=== PATIENT | male | born 1945 | race Caucasian/White ===

== ENCOUNTER 2018-01-07 04:09 | Observation (INO) | payer MEDICARE, OTHER ==
[2018-01-07] MEDS ORDERED: SODIUM CHLORIDE 0.9% 1,000 ML IV ONE (04:17)
[2018-01-07] MEDS ORDERED: MORPHINE 10 MG/ML VIAL IVP STA (04:17)
[2018-01-07] MEDS ORDERED: ONDANSETRON 4 MG/2 ML VIAL IVP STA (04:17)
--- NOTE | 2018-01-07 04:22 | ED Physician Documentation ---
PD HPI ABD PAIN - Stated complaint Stated Complaint: ABDOMINAL PAIN - History obtained from History obtained from: Patient - History of Present Illness Timing - onset: Yesterday Timing - details: Gradual onset, Intermittant Quality: Cramping, Aching, Sharp Location: RLQ, LLQ Associated symptoms: Nausea. No: Fever, Vomiting, Diarrhea, Constipation Similar symptoms before: Work up / diagnostics, Treatment Recently seen: Not recently seen - Additional information Additional information: Patient is a 72 year old male with a history of prior abdominal surgery and sbo who is presenting to the emergency department for lower abdominal pain. Patient states that it started yesterday day evening. patient states that the pain is always there but he will have episodes when it gets severe. Patient reports a normal bowel movement and denies any urinary complaints. Review of Systems Constitutional: denies: Fever, Chills Eyes: reports: Reviewed and negative Ears: reports: Reviewed and negative Nose: reports: Reviewed and negative Throat: reports: Reviewed and negative Cardiac: denies: Chest pain / pressure Respiratory: denies: Dyspnea, Cough GI: reports: Abdominal Pain. denies: Abdominal Swelling, Nausea, Vomiting, Constipation, Diarrhea : denies: Dysuria, Frequency, Hesitancy, Hematuria Musculoskeletal: denies: Back pain Neurologic: denies: Generalized weakness, Focal weakness Immunocompromised: denies: Immunocompromised PD PAST MEDICAL HISTORY - Past Medical History Cardiovascular: Hypertension, Atrial flutter Respiratory: None Endocrine/Autoimmune: None GI: None : None HEENT: None Psych: None Musculoskeletal: Gout Derm: None - Past Surgical History Past Surgical History: Yes - Present Medications Home Medications: Ambulatory Orders Medication Instructions Recorded Confirmed Allopurinol 100 mg PO DAILY 01/18/16 01/18/16 Benazepril HCl 5 mg PO DAILY 01/18/16 01/18/16 Simvastatin 20 mg PO DAILY 01/18/16 01/18/16 hydroCHLOROthiazide [Hydrodiuril] 25 mg PO ONCE 01/18/16 01/18/16 - Allergies Allergies/Adverse Reactions: Allergies Allergy/AdvReac Type Severity Reaction Status Date / Time No Known Drug Allergies Allergy Verified 01/07/18 04:43 - Social History Does the pt smoke?: No Smoking Status: Never smoker Does the pt have substance abuse?: No - Immunizations Immunizations are current?: Yes - POLST Patient has POLST: No PD ED PE NORMAL - Vitals Vital signs reviewed: Yes - General General: Alert and oriented X 3, No acute distress - HEENT HEENT: Atraumatic, PERRL - Neck Neck: Supple, no meningeal sign - Cardiac Cardiac: RRR - Respiratory Respiratory: No respiratory distress - Derm Derm: Normal color, Warm and dry - Extremities Extremities: No deformity - Neuro Neuro: Alert and oriented X 3, No motor deficit, Normal speech Eye Opening: Spontaneous Motor: Obeys Commands Verbal: Oriented GCS Score: 15 PD ED PE EXPANDED - Abdomen Abdomen: Tender to palpation, RLQ, Suprapubic, LLQ. No: Rebound, Guarding, Mass Results - Vitals Vitals: Vital Signs - 24 hr 01/07/18 01/07/18 04:13 06:24 Temperature 36.7 C Heart Rate 79 80 Respiratory 28 H 17 Rate Blood Pressure 133/78 H 126/79 O2 Saturation 100 98 Oxygen O2 Source Room air - Labs Labs: Laboratory Tests 01/07/18 01/07/18 01/07/18 04:10 04:30 04:30 WBC 12.5 H RBC 5.56 Hgb 16.7 Hct 49.0 MCV 88.0 MCH 30.0 MCHC 34.1 RDW 13.3 Plt Count 250 MPV 8.0 Neut # 10.8 H Lymph # 1.2 L [place] # 0.4 Eos # 0.0 Baso # 0.1 Absolute Nucleated RBC 0.00 Nucleated RBC % 0.0 Sodium 135 Potassium 3.3 L Chloride 96 L Carbon Dioxide 28 Anion Gap 11.0 BUN 21 H Creatinine 1.0 Estimated GFR (MDRD) 74 L Glucose 141 H Lactic Acid Calcium 9.6 Total Bilirubin 1.4 H AST 26 ALT 28 Alkaline Phosphatase 71 Total Protein 8.0 Albumin 4.7 Globulin 3.3 Albumin/Globulin Ratio 1.4 Lipase 44 Urine Color YELLOW Urine Clarity CLEAR Urine pH 6.5 Ur Specific [place] 1.015 Urine Protein NEGATIVE Urine Glucose (UA) NEGATIVE Urine Ketones NEGATIVE Urine Occult Blood NEGATIVE Urine Nitrite NEGATIVE Urine Bilirubin NEGATIVE Urine Urobilinogen 0.2 (NORMAL) Ur Leukocyte Esterase NEGATIVE Ur Microscopic Review NOT INDICATED Urine Culture Comments NOT INDICATED 01/07/18 04:30 WBC RBC Hgb Hct MCV MCH MCHC RDW Plt Count MPV Neut # Lymph # [place] # Eos # Baso # Absolute Nucleated RBC Nucleated RBC % Sodium Potassium Chloride Carbon Dioxide Anion Gap BUN Creatinine Estimated GFR (MDRD) Glucose Lactic Acid 2.1 Calcium Total Bilirubin AST ALT Alkaline Phosphatase Total Protein Albumin Globulin Albumin/Globulin Ratio Lipase Urine Color Urine Clarity Urine pH Ur Specific [place] Urine Protein Urine Glucose (UA) Urine Ketones Urine Occult Blood Urine Nitrite Urine Bilirubin Urine Urobilinogen Ur Leukocyte Esterase Ur Microscopic Review Urine Culture Comments - Rads (name of study) ct abdomen and pelvis Radiology: Final report received (sbo) PD MEDICAL DECISION MAKING - ED course Complexity details: reviewed old records, reviewed results, re-evaluated patient , considered differential, d/w patient, d/w family ED course: Patient was seen and examined at bedside. IV access was gained and labs were drawn. Patient was treated with zofran and fluids. Imaging was ordered. When patient returned from imaging the results were reviewed. patient was found to have an sbo. call or contact centre team leader surgery, Dr. Sommers was called and the case was discussed with him. Patient was admitted under his service for further evaluation and care. Departure - Departure Disposition: ED Place in Observation Clinical Impression: Small bowel obstruction Condition: Stable
[2018-01-07 04:37] LABS: BILIRUBIN,URINE NEGATIVE (NEGATIVE); GLUCOSE, URINE (UA) NEGATIVE (NEGATIVE); KETONES,URINE (UA) NEGATIVE (NEGATIVE); LEUKOCYTE ESTERASE, URINE NEGATIVE (NEGATIVE); NITRITE,URINE NEGATIVE (NEGATIVE); OCCULT BLOOD,URINE NEGATIVE (NEGATIVE); PH,URINE 6.5 PH (5.0-7.5); PROTEIN,URINE NEGATIVE (NEGATIVE); UROBILINOGEN,URINE 0.2 (NORMAL) E.U./dL (NORMAL)
[2018-01-07 04:45] LABS: BASOPHILS # (AUTO) 0.1 10^3/uL (0.0-0.1); BASOPHILS % (AUTO) 0.9 %; EOSINOPHILS % (AUTO) 0.3 %; HGB - HEMOGLOBIN 16.7 g/dL (14.0-18.0); LYMPHOCYTES # (AUTO) 1.2 10^3/uL (1.5-3.5); LYMPHOCYTES % (AUTO) 9.4 %; MEAN CORPUSCULAR HGB CONC 34.1 g/dL (32.0-36.0); MONOCYTES # (AUTO) 0.4 10^3/uL (0.0-1.0); NEUTROPHILS # (AUTO) 10.8 10^3/uL (1.5-6.6); NEUTROPHILS % (AUTO) 86.4 %; PLT - PLATELET COUNT 250 10^3/uL (130-450); RED BLOOD COUNT 5.56 10^6/uL (4.70-6.10); RED CELL DISTRIBUTION WIDTH 13.3 % (12.0-15.0); WHITE BLOOD COUNT 12.5 x10^3/uL (4.8-10.8)
[2018-01-07 04:47] LABS: CLARITY,URINE CLEAR (CLEAR)
[2018-01-07] MEDS ORDERED: IOPAMIDOL-300 100 ML VIAL ONE (04:48)
[2018-01-07 04:57] LABS: ALBUMIN 4.7 g/dL (3.2-5.5); ALBUMIN/GLOBULIN RATIO 1.4 (1.0-2.2); BILIRUBIN,TOTAL 1.4 mg/dL (0.2-1.0); CALCIUM 9.6 mg/dL (8.5-10.3)
[2018-01-07] MEDS ORDERED: IOPAMIDOL-300 100 ML VIAL IVP ONE (05:21)
--- NOTE | 2018-01-07 05:55 | CT Preliminary Report ---
Exam: CT ABDOMEN/PELVIS W/ IMPRESSION: 1. Similar pattern of small bowel obstruction again seen with a transition within the central/right l ower quadrant region of the abdomen. Maximal small bowel diameter measures 3.5 cm (image 75 series 3) . There is mild associated adjacent mesenteric edema. 2. Stable 1.7 cm right adrenal nodule. Stability from the prior study favors a benign etiology, such as an adenoma. 3. Severe sigmoid diverticulosis noted without evidence of diverticulitis. Appendix is normal. [facility] SITE ID: [id number]
--- NOTE | 2018-01-07 06:05 | CT Report ---
EXAM: CT ABDOMEN AND PELVIS EXAM DATE: 01/07/2018 05:23 AM. CLINICAL HISTORY: Lower abdominal pain, history of bowel obstruction. COMPARISONS: 01/18/2016. TECHNIQUE: Routine helical CT imaging was performed through the abdomen and pelvis. IV contrast: 100 mL Isovue 300. Enteric contrast: No. Reconstructions: Coronal and sagittal. In accordance with CT protocol optimization, one or more of the following dose reduction techniques w ere utilized for this exam: automated exposure control, adjustment of mA and/or KV based on patient s ize, or use of iterative reconstructive technique. FINDINGS: ABDOMEN: Liver: No significant abnormality. Stomach/Distal Esophagus: No significant abnormality. Gallbladder: No significant abnormality. Bile Ducts: No significant abnormality. Pancreas: No significant abnormality. Spleen: No significant abnormality. Kidneys: No suspicious solid appearing lesion. No hydronephrosis. Left renal peripelvic cysts are pre sent. Bilateral extrarenal pelves. Adrenals: Right adrenal nodule is again noted, measuring 1.8 cm (image 33 series 3). Bowel: As was noted on the prior examination, there are a cluster of dilated small bowel loops within the mid and lower abdomen, with a transition within the right lower quadrant region. Just proximal t o the transition, maximal small bowel diameter measures 3.5 cm (image 75 series 3). There is fecal ma tter within the small bowel near the transition site. Upstream bowel loops demonstrate mild distentio n, filled with fluid. There is a large duodenal diverticulum arising from the distal portion of the t hird portion of the duodenum measuring 4.8 cm (image 40 series 3). This is similar to the prior study . There is severe sigmoid diverticulosis. There is no definite evidence of diverticulitis noted at th is time. Appendix: Normal. Lymph Nodes: No pathologically enlarged nodes. Vasculature: Normal caliber aorta. Mild to moderate abdominal aortic atherosclerosis noted. Fluid: No significant free fluid. Abdominal Wall: No significant abnormality. Other: No significant abnormality. PELVIS: Prostate and Seminal Vesicles: At least mild prostate hypertrophy. Bladder: No significant abnormality. Lymph Nodes: No pathologically enlarged nodes. Fluid: No significant free fluid. Other: There is a small fat-containing right inguinal hernia. BONES: No suspicious bony lesions. LOWER CHEST: No significant consolidation or effusion. Linear subsegmental atelectasis and/or scarrin g within the lingula noted. IMPRESSION: 1. Similar pattern of small bowel obstruction again seen with a transition within the central/right l ower quadrant region of the abdomen. Maximal small bowel diameter measures 3.5 cm (image 75 series 3) . There is mild associated adjacent mesenteric edema. 2. Stable 1.7 cm right adrenal nodule. Stability from the prior study favors a benign etiology, such as an adenoma. 3. Severe sigmoid diverticulosis noted without evidence of diverticulitis. Appendix is normal. [facility] Referring Provider Line: [phone] SITE ID: [id number]
[2018-01-07] MEDS ORDERED: HYDROmorphone 0.5 MG/0.5 ML SYRINGE IVP PRN (06:19)
[2018-01-07] MEDS ORDERED: ONDANSETRON ODT 4 MG TABLET TL PRN (06:19)
[2018-01-07] MEDS ORDERED: SODIUM CHLORIDE FLUSH 0.9% 10 ML SYRINGE IVP PRN (06:19)
[2018-01-07] MEDS ORDERED: SODIUM CHLORIDE 0.9% 1,000 ML IV SCH (07:00)
[2018-01-07] MEDS ORDERED: HEPARIN 5,000 UNIT/ML VIAL SUBQ SCH (09:00)
[2018-01-07] MEDS ORDERED: POLYETHYLENE GLYCOL 3350 17 GM PACKET PO SCH (09:00)
[2018-01-07] MEDS ORDERED: HYDROmorphone 1 MG/ML SYRINGE IVP PRN (10:54)
[2018-01-07] MEDS: NS W/40 MEQ KCL 1,000 ML IV SCH ×2 (11:08→19:52)
[2018-01-07] MEDS: FAMOTIDINE 20 MG/50 ML 50 ML IV SCH ×2 (11:15→20:35)
[2018-01-07] MEDS: SODIUM CHLORIDE FLUSH 0.9% 10 ML SYRINGE IVP SCH ×2 (11:15→19:53)
[2018-01-08] MEDS: SODIUM CHLORIDE FLUSH 0.9% 10 ML SYRINGE IVP SCH ×2 (03:31→09:29)
[2018-01-08] MEDS: NS W/40 MEQ KCL 1,000 ML IV SCH (03:54)
[2018-01-08 06:18] LABS: BASOPHILS # (AUTO) 0.1 10^3/uL (0.0-0.1); EOSINOPHILS # (AUTO) 0.1 10^3/uL (0.0-0.7); EOSINOPHILS % (AUTO) 2.5 %; HGB - HEMOGLOBIN 14.3 g/dL (14.0-18.0); LYMPHOCYTES # (AUTO) 1.4 10^3/uL (1.5-3.5); LYMPHOCYTES % (AUTO) 24.3 %; MEAN CORPUSCULAR HEMOGLOBIN 30.3 pg (27.0-31.0); MEAN CORPUSCULAR HGB CONC 33.9 g/dL (32.0-36.0); MEAN CORPUSCULAR VOLUME 89.4 fL (80.0-94.0); MEAN PLATELET VOLUME 8.5 fL (7.4-11.4); MONOCYTES # (AUTO) 0.4 10^3/uL (0.0-1.0); MONOCYTES % (AUTO) 6.8 %; NEUTROPHILS # (AUTO) 3.8 10^3/uL (1.5-6.6); NEUTROPHILS % (AUTO) 65.4 %; PLT - PLATELET COUNT 188 10^3/uL (130-450); RED BLOOD COUNT 4.72 10^6/uL (4.70-6.10); WHITE BLOOD COUNT 5.8 x10^3/uL (4.8-10.8)
[2018-01-08 06:22] LABS: CALCIUM 8.4 mg/dL (8.5-10.3); CREATININE 0.8 mg/dL (0.6-1.2)
[2018-01-08] MEDS ORDERED: NS W/40 MEQ KCL 1,000 ML IV SCH (09:00)
[2018-01-08] MEDS: FAMOTIDINE 20 MG/50 ML 50 ML IV SCH (09:29)
[2018-01-08 11:35] VITALS: BP 124/70
--- NOTE | 2018-01-08 14:17 | PROVIDER PROGRESS NOTE ---
Subjective - General Admit Date: 01/07/18 - Review of Systems Gastrointestinal: positive: Flatus, Other (he had bowel movement that was loose and continues to have flatus) Objective - Patient Data Vital Signs: Vital Signs x48h Temp Pulse Resp BP Pulse Ox 01/08/18 11:34 36.4 C L 68 16 124/70 97 01/08/18 07:30 36.5 C 70 16 128/60 96 Weight: Weight 01/06/18 01/07/18 01/08/18 23:59 23:59 23:59 Weight (kg) 90.718 kg Intake & Output: Intake and Output Totals x24h 01/06/18 01/07/18 01/08/18 23:59 23:59 23:59 Intake Total 1100 2300.000 Balance 1100 2300.000 - Lab Results Lab Results: 01/08/18 05:40 01/08/18 05:40 Other Lab Results: Lab Results x24hrs 01/08/18 01/08/18 Range/Units 05:40 05:40 WBC 5.8 (4.8-10.8) x10^3/uL RBC 4.72 (4.70-6.10) 10^6/uL Hgb 14.3 (14.0-18.0) g/dL Hct 42.2 (42.0-52.0) % MCV 89.4 (80.0-94.0) fL MCH 30.3 (27.0-31.0) pg MCHC 33.9 (32.0-36.0) g/dL RDW 13.0 (12.0-15.0) % Plt Count 188 (130-450) 10^3/uL MPV 8.5 (7.4-11.4) fL Neut # 3.8 (1.5-6.6) 10^3/uL Lymph # 1.4 L (1.5-3.5) 10^3/uL [place] # 0.4 (0.0-1.0) 10^3/uL Eos # 0.1 (0.0-0.7) 10^3/uL Baso # 0.1 (0.0-0.1) 10^3/uL Absolute Nucleated RBC 0.01 x10^3/uL Nucleated RBC % 0.1 /100WBC Sodium 138 (135-145) mmol/L Potassium 3.9 (3.5-5.0) mmol/L Chloride 108 (101-111) mmol/L Carbon Dioxide 25 (21-32) mmol/L Anion Gap 5.0 L (6-13) BUN 16 (6-20) mg/dL Creatinine 0.8 (0.6-1.2) mg/dL Estimated GFR (MDRD) 95 (>89) Glucose 92 (70-100) mg/dL Calcium 8.4 L (8.5-10.3) mg/dL - Current Medications Current Medications: Current Medications Generic Name Dose Route Start Last Admin Trade Name Freq PRN Reason Stop Dose Admin Famotidine 50 mls @ 100 mls/hr 01/07/18 09:00 01/08/18 10:07 Pepcid 20 Mg/50 Ml IV Infused BID SYMONE Infusion Potassium Chloride/Sodium Chloride 1,000 mls @ 60 mls/hr 01/08/18 09:00 01/08 09:32 Normal Saline 0.9% W/40 Meq Kcl IV 60 mls/hr .[id number] SYMONE Administration Sodium Chloride 10 ml 01/07/18 09:00 01/08/18 09:29 Normal Saline Flush 0.9% IVP Not Given 0100,0900,1700 SYMONE - Physical Exam Abdomen: positive: Non-tender Impression/Plan - Problem List Problem List: partial small bowel obstruction that appears to be resolving. Will start on liquids, advance to regular diet, and discharge home if tolerating diet.
--- NOTE | 2018-01-08 14:19 | Discharge Plan ---
Discharge Plan Disposition: 01 Home, Self Care Diet: Regular (easily digestable foods without a lot of fiber for next couple of days.) Activity Restrictions: No Restrictions Shower Restrictions: No Driving Restrictions: No Weight Bearing: Full Weight No Smoking: If you smoke, Please STOP! Call for help. Follow-up with: Richard Walters MD [Primary Care Provider] - 2 Weeks
--- NOTE | 2018-01-09 07:38 | HISTORY & PHYSICAL EXAMINATION ---
DATE OF SERVICE: 01/07/2018 Physician: Ralph Sommers MD REASON FOR ADMISSION: Abdominal pain, nausea, and vomiting. HISTORY OF PRESENT ILLNESS: Patient is a 72-year-old male who presents with less than 24-hour history of mid abdominal pain along with nausea and vomiting. His history is significant for undergoing SHIRA repair of a recurrent right inguinal hernia in the past. He presented approximately a mmdx-pgl-j-half ago with the same abdominal symptoms having been diagnosed with a partial small-bowel obstruction. He was watched overnight and the next day had a small bowel series which showed resolution of his small-bowel obstruction. He had done well until, as stated, within the last 24 hours had experienced the same abdominal symptoms. He then came to the emergency room where a CT scan of the abdomen and pelvis was consistent with acute small-bowel obstruction. PAST SURGICAL HISTORY 1. Right inguinal hernia repair with repair of recurrent right inguinal hernia using SHIRA method. 2. Orthopedic surgery of the lower extremity. 3. Orchiectomy. PAST MEDICAL HISTORY 1. Gout. 2. Hypertension. 3. Hyperlipidemia. 4. History of atrial flutter. 5. History of testicular cancer. MEDICATIONS 1. Allopurinol. 2. Benazepril 3. Simvastatin. 4. Hydrochlorothiazide. ALLERGIES TO MEDICATIONS: None. HABITS: The patient denies any smoking, alcohol, or drug use. SOCIAL HISTORY: The patient is . FAMILY HISTORY: No significant medical problems. REVIEW OF SYSTEMS A complete review of systems was obtained. Pertinent positives are: GASTROINTESTINAL: Abdominal pain, nausea, and vomiting. A 12-point review of systems was obtained with pertinent positives discussed and all others being negative. PHYSICAL EXAMINATION VITAL SIGNS: Temperature is 36.4, heart rate 78, blood pressure 137/68. GENERAL: Patient is lying in bed. He is only having mild discomfort in the mid abdominal area. EYES: Nonicteric. NECK: No lymphadenopathy. HEART: Regular. LUNGS: Clear. BACK: Nontender. ABDOMEN: Soft. No significant tenderness. No hernias. Positive bowel sounds. EXTREMITIES: No edema or cyanosis. NEUROLOGIC: The patient appears to be neurologically intact without any deficits. PSYCHOLOGICAL: The patient is coherent, cooperative, and appears to answer questions fully. DIAGNOSTIC DATA Sodium 135, potassium 3.3, creatinine of 1.0, total bilirubin 1.4. White blood cell count 12.5, hemoglobin 16.7. CT scan of the abdomen and pelvis performed without oral contrast shows a small bowel obstruction with transition point in the right lower quadrant. Bowel diameter is maximal at 3.5 cm. There is a 1.7 cm right adrenal nodule that is stable. There is diverticulosis of the colon being noted. ASSESSMENT AND PLAN 1. Abdominal pain, nausea, and vomiting secondary to bowel obstruction. This is similar to his previous obstruction a hfaa-odz-r-half ago. He does not have any peritoneal signs or worrisome signs seen on CT scan. I would recommend observation at the current time. I have discussed that this most likely is from his SHIRA hernia repair on the right side. This could become a recurrent thing and then would recommend diagnostic laparoscopy. If his bowel obstruction does not resolve like it did in the past, then we would also recommend that he undergo a diagnostic laparoscopy, lysis of adhesions, possible laparotomy. The small bowel is most likely adherent because of previous surgical where you can have adhesions between the small bowel adhesions to the peritoneal closure or actually have mesh exposed where the bowel was attached. Laparoscopic lysis of adhesions could be quite easy; however, if the bowel was attached to the mesh, then most likely laparotomy with lysis of adhesions would be needed. He understands this fully and would like to see how he does overnight before making any other decisions on his care. 2. Right adrenal nodule, stable. 3. Severe sigmoid diverticulosis, at the current time without symptoms. 4. Hypertension, controlled with medications. 5. History of atrial flutter with the patient being in normal sinus rhythm at the current time. PLAN 1. NPO. 2. IV fluids. 3. Reevaluate the patient to see if his symptoms are improving or not. TD: 01/09/2018 02:25 NICHOLAS
== END 2018-01-08 14:45 | disposition home or self-care (01) ==
LOC: ED 04:09 → MS3 06:20 → OBS 15:32
PROVIDERS: ADMIT Surgery; ATTEND Surgery
DX: K56.600 Partial intestinal obstruction, unspecified as to cause (principal); I10 Essential (primary) hypertension; M10.9 Gout, unspecified; E78.5 Hyperlipidemia, unspecified; K57.30 Diverticulosis of large intestine without perforation or abscess without bleeding; Z98.890 Other specified postprocedural states; Z90.79 Acquired absence of other genital organ(s); Z85.47 Personal history of malignant neoplasm of testis; Z86.79 Personal history of other diseases of the circulatory system
CPT/HCPCS: 36415; 74177; 80048; 80053; 81003; 83605; 83690; 85025; 96361; 96365; 96366; 96375; 99284; 99285; G0378; Q9967; 81001; 87086

== ENCOUNTER 2018-08-01 06:11 | Observation (INO) | payer MEDICARE, OTHER ==
[2018-08-01] MEDS ORDERED: fentaNYL 100 MCG/2 ML VIAL IVP STA (06:37)
[2018-08-01] MEDS ORDERED: ONDANSETRON 4 MG/2 ML VIAL IVP STA (06:37)
[2018-08-01] MEDS ORDERED: SODIUM CHLORIDE 0.9% 1,000 ML IV ONE (06:37)
[2018-08-01 07:13] LABS: BASOPHILS # (AUTO) 0.1 10^3/uL (0.0-0.1); BASOPHILS % (AUTO) 0.6 %; EOSINOPHILS % (AUTO) 0.2 %; HGB - HEMOGLOBIN 17.2 g/dL (14.0-18.0); LYMPHOCYTES # (AUTO) 1.2 10^3/uL (1.5-3.5); LYMPHOCYTES % (AUTO) 10.2 %; MEAN CORPUSCULAR HEMOGLOBIN 30.8 pg (27.0-31.0); MEAN CORPUSCULAR HGB CONC 34.5 g/dL (32.0-36.0); MEAN CORPUSCULAR VOLUME 89.2 fL (80.0-94.0); MEAN PLATELET VOLUME 8.3 fL (7.4-11.4); MONOCYTES # (AUTO) 0.4 10^3/uL (0.0-1.0); MONOCYTES % (AUTO) 3.5 %; NEUTROPHILS # (AUTO) 9.7 10^3/uL (1.5-6.6); NEUTROPHILS % (AUTO) 85.5 %; PLT - PLATELET COUNT 236 10^3/uL (130-450); RED BLOOD COUNT 5.59 10^6/uL (4.70-6.10); RED CELL DISTRIBUTION WIDTH 13.3 % (12.0-15.0); WHITE BLOOD COUNT 11.4 x10^3/uL (4.8-10.8)
--- NOTE | 2018-08-01 07:33 | ED Physician Documentation ---
PD HPI ABD PAIN - Stated complaint Stated Complaint: ABD PX - Chief complaint Chief Complaint: Abd Pain - History obtained from History obtained from: Patient, Family - History of Present Illness Timing - onset: Enter time (2329), Last night Timing - duration: Hours Timing - details: Abrupt onset, Still present Quality: Cramping, Sharp, Pain Location: Suprapubic Improved by: Vomiting, BM Worsened by: Moving, Position, Palpation Associated symptoms: Nausea, Vomiting. No: Diarrhea, Constipation Similar symptoms before: Diagnosis (SBO) Recently seen: Not recently seen - Additional information Additional information: 73-year-old male with a history of intermittent small bowel obstruction has developed symptoms of suprapubic cramping and pain similar to what has had previously with bowel obstruction. He has had a single hernia operation with mesh repair as the only violation to his abdomen. He had lasagna for dinner last night and clam chowder at the club for lunch. He states that nothing else seemed out of the ordinary and he developed symptoms at about 11:30 PM last night. He has had this happen to him twice previously required overnight hospitalization and had rapid recovery and did not require surgical intervention. Review of Systems Constitutional: denies: Fever, Chills, Myalgias Eyes: denies: Decreased vision Ears: denies: Ear pain Nose: denies: Congestion Throat: reports: Dental pain / toothache Cardiac: denies: Chest pain / pressure, Palpitations Respiratory: denies: Dyspnea, Cough GI: reports: Abdominal Pain, Nausea, Vomiting : denies: Dysuria, Frequency Skin: denies: Rash Musculoskeletal: denies: Neck pain, Back pain, Extremity pain Neurologic: denies: Generalized weakness, Focal weakness, Numbness PD PAST MEDICAL HISTORY - Past Medical History Cardiovascular: Hypertension, Atrial flutter Respiratory: None Neuro: Other Endocrine/Autoimmune: None GI: None : None HEENT: None Psych: None Musculoskeletal: Gout Derm: None - Past Surgical History Past Surgical History: Yes - Present Medications Home Medications: Ambulatory Orders Medication Instructions Recorded Confirmed Allopurinol 200 mg PO DAILY 01/18/16 01/07/18 Benazepril HCl 20 mg PO DAILY 01/18/16 01/07/18 Simvastatin 20 mg PO DAILY 01/18/16 01/07/18 hydroCHLOROthiazide [Hydrodiuril] 50 mg PO ONCE 01/18/16 01/07/18 - Allergies Allergies/Adverse Reactions: Allergies Allergy/AdvReac Type Severity Reaction Status Date / Time No Known Drug Allergies Allergy Verified 08/01/18 06:22 - Social History Does the pt smoke?: No Smoking Status: Never smoker Does the pt have substance abuse?: No - Immunizations Immunizations are current?: Yes - POLST Patient has POLST: No PD ED PE NORMAL - Vitals Vital signs reviewed: Yes (normal ) - General General: Alert and oriented X 3, No acute distress, Well developed/nourished - HEENT HEENT: Atraumatic, PERRL, EOMI - Neck Neck: Supple, no meningeal sign, No bony TTP - Cardiac Cardiac: RRR, No murmur - Respiratory Respiratory: No respiratory distress, Clear bilaterally - Abdomen Abdomen: Soft, Other (The bowel sounds are tympanitic and the abdomen is midly distended suprapubic. There is mild tenderness to palpation of the lower abdomen. 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, No motor deficit, No sensory deficit, Normal speech Eye Opening: Spontaneous Motor: Obeys Commands Verbal: Oriented GCS Score: 15 - Psych Psych: Normal mood, Normal affect Results - Vitals Vitals: Vital Signs - 24 hr 08/01/18 08/01/18 06:20 07:19 Temperature 36.2 C L Heart Rate 82 79 Respiratory 18 16 Rate Blood Pressure 128/74 119/75 O2 Saturation 99 98 Oxygen O2 Source Room air - Labs Labs: Laboratory Tests 08/01/18 08/01/18 08/01/18 06:45 06:45 08:45 WBC 11.4 H RBC 5.59 Hgb 17.2 Hct 49.8 MCV 89.2 MCH 30.8 MCHC 34.5 RDW 13.3 Plt Count 236 MPV 8.3 Neut # (Auto) 9.7 H Lymph # (Auto) 1.2 L [place] # (Auto) 0.4 Eos # (Auto) 0.0 Baso # (Auto) 0.1 Absolute Nucleated RBC 0.01 Nucleated RBC % 0.1 Sodium 135 Potassium 3.0 L Chloride 97 L Carbon Dioxide 24 Anion Gap 14.0 H BUN 22 H Creatinine 0.8 Estimated GFR (MDRD) 95 Glucose 150 H Calcium 9.9 Total Bilirubin 1.1 H AST 33 ALT 38 Alkaline Phosphatase 69 Total Protein 7.9 Albumin 4.7 Globulin 3.2 Albumin/Globulin Ratio 1.5 Lipase 48 Urine Color YELLOW Urine Clarity CLEAR Urine pH 5.5 Ur Specific [place] 1.010 Urine Protein NEGATIVE Urine Glucose (UA) NEGATIVE Urine Ketones NEGATIVE Urine Occult Blood NEGATIVE Urine Nitrite NEGATIVE Urine Bilirubin NEGATIVE Urine Urobilinogen 0.2 (NORMAL) Ur Leukocyte Esterase NEGATIVE Ur Microscopic Review NOT INDICATED Urine Culture Comments NOT INDICATED - Rads (name of study) CT abdomen/pel with Radiology: Prelim report reviewed (Impression: 1. Upper normal to mildly dilated fluid containing small bowel loops up to 3.2 cm in diameter and fluid- filled colon with air-fluid levels from cecum through the descending colon. Decompressed distal ileum. Appearance compatible with adynamic ileus though a low-grade partial small bowel obstruction is difficult to exclude. 2. Uncomplicated colonic diverticulosis. Normal appendix. 3. Mild hepatic steatosis. Mild splenomegaly. 4. Other stable or incidental findings including small right adrenal nodule and renal cyst. No hydronephrosis.), EMP read indepedently, See rad report PD MEDICAL DECISION MAKING - ED course Complexity details: reviewed old records, reviewed results, re-evaluated patient, considered differential, d/w patient, d/w family ED course: 73-year-old male with a history of recurrent small bowel obstruction has developed symptoms of obstruction again. He has appearance of small partial small bowel obstruction on his CT scan of the abdomen and pelvis. He is low on K+ as well. He is administered IV saline and K+ and we will admit him to observation. Departure - Departure Disposition: ED Place in Observation Clinical Impression: Small bowel obstruction Condition: Stable
[2018-08-01 07:42] LABS: ALBUMIN 4.7 g/dL (3.2-5.5); ALBUMIN/GLOBULIN RATIO 1.5 (1.0-2.2); BILIRUBIN,TOTAL 1.1 mg/dL (0.2-1.0); CALCIUM 9.9 mg/dL (8.5-10.3); CREATININE 0.8 mg/dL (0.6-1.2); TOTAL PROTEIN 7.9 g/dL (6.7-8.2)
[2018-08-01] MEDS ORDERED: IOVERSOL 320 100 ML VIAL IVP ONE (07:42)
[2018-08-01] MEDS ORDERED: POTASSIUM CHLOR 10 MEQ/100 ML 10 MEQ/100 ML BAG IV STA (08:20)
--- NOTE | 2018-08-01 09:02 | CT Report ---
Reason: suprapubic pain h/o obstruction Procedure Date: 08/01/2018 Accession Number: [id number] / [id number] Procedure: CT - Abdomen/Pelvis W/ CPT Code: FULL RESULT: EXAM: CT ABDOMEN AND PELVIS EXAM DATE: 08/01/2018 07:47 AM. CLINICAL HISTORY: Suprapubic pain since last night. COMPARISONS: CT abdomen pelvis 01/07/2018. TECHNIQUE: Routine helical CT imaging was performed through the abdomen and pelvis. IV contrast: ISOVUE 300 100mL. Enteric contrast: No. Reconstructions: Coronal and sagittal. In accordance with CT protocol optimization, one or more of the following dose reduction techniques were utilized for this exam: automated exposure control, adjustment of mA and/or KV based on patient size, or use of iterative reconstructive technique. FINDINGS: Lung Bases: Minor atelectasis or scarring. Liver: Normal size and contour. Mild steatosis. No focal lesion. Gallbladder/Bile Ducts: No calcified gallstones, gallbladder wall thickening, or dilated ducts. Spleen: Stable mild splenomegaly 14.2 cm in height, without focal lesion. Pancreas: Unremarkable. Adrenal Glands: Stable 1.8 cm right adrenal nodule. Kidneys: No hydronephrosis. Bilateral parapelvic cysts, left more prominent than right. Small upper pole left renal cortical cyst. No solid nodule or abnormal parenchymal enhancement. Peritoneal Cavity/Bowel: Colonic diverticulosis without diverticulitis. There are fluid-filled upper normal to slightly dilated small bowel loops in mid and lower right abdomen up to 3.2 cm in diameter (axial 84/3) without small bowel feces sign or focal caliber transition. Decompressed terminal ileum. Fluid-filled ascending, transverse, and descending colon with small air-fluid levels. No perienteric or pericolonic phlegmon. No free fluid, abscess, or free air. Small periportal, portacaval, and mesenteric nodes, not frankly pathologic by size criteria. Normal retrocecal appendix. Retroperitoneum: No mass or adenopathy. Pelvic Organs: Unremarkable bladder. Mild prostatic enlargement. No abnormal fluid collection, adenopathy, or focal inflammatory process. Stable fat-containing direct right inguinal hernia. Vasculature: No aneurysm. Calcified aortic plaques. Widely patent major abdominal aortic branch vessels. Bones: Degenerative changes of the spine. No aggressive bone destructive process or fracture. IMPRESSION: 1. Upper normal to mildly dilated fluid-containing small bowel loops up to 3.2 cm in diameter and fluid-filled colon with air-fluid levels from cecum through descending colon. Decompressed distal ileum. Appearance compatible with adynamic ileus though low-grade partial small bowel obstruction is difficult to exclude. 2. Uncomplicated colonic diverticulosis. Normal appendix. 3. Mild hepatic steatosis. Stable mild splenomegaly. 4. Other stable or incidental findings including small right adrenal nodule and renal cysts. No hydronephrosis. RADIA
[2018-08-01 09:06] LABS: BILIRUBIN,URINE NEGATIVE (NEGATIVE); GLUCOSE, URINE (UA) NEGATIVE (NEGATIVE); KETONES,URINE (UA) NEGATIVE (NEGATIVE); LEUKOCYTE ESTERASE, URINE NEGATIVE (NEGATIVE); NITRITE,URINE NEGATIVE (NEGATIVE); OCCULT BLOOD,URINE NEGATIVE (NEGATIVE); PH,URINE 5.5 PH (5.0-7.5); PROTEIN,URINE NEGATIVE (NEGATIVE); UROBILINOGEN,URINE 0.2 (NORMAL) E.U./dL (NORMAL)
[2018-08-01 09:07] LABS: CLARITY,URINE CLEAR (CLEAR)
[2018-08-01] MEDS ORDERED: PROCHLORPERAZINE 10 MG/2 ML VIAL IVP PRN (11:06)
[2018-08-01] MEDS ORDERED: SODIUM CHLORIDE FLUSH 0.9% 10 ML SYRINGE IVP PRN (11:06)
[2018-08-01] MEDS ORDERED: ACETAMINOPHEN 1,000 MG/100 ML 100 ML IV PRN (11:09)
[2018-08-01] MEDS: D5NS W/20 MEQ KCL 1,000 ML IV SCH ×2 (13:50→23:01)
--- NOTE | 2018-08-01 15:36 | HISTORY & PHYSICAL EXAMINATION ---
DATE OF SERVICE: 08/01/2018 Physician: Holly Dubose MD HISTORY OF PRESENT ILLNESS: This is a 73-year-old white male with a history of remote atrial fibrillation 30 years ago, hypertension and two episodes of small- bowel obstruction. He has had a hernia operation with mesh repair as the only surgery to his abdomen. The patient developed rapidly worsening symptoms last night and through the night and came to the emergency room this morning for complaints of abdominal crampy pain and nausea and vomiting. He was given antiemetics and pain medications in the emergency room and imaging showed bowel obstruction once again and he is being placed in Observation for management. PAST MEDICAL HISTORY: Hypertension, hernia surgery, two episodes of small-bowel obstruction in the last 1-2 years. ALLERGIES: NONE. MEDICATIONS: 1. HCTZ 50 mg daily. 2. Simvastatin 20 mg daily. 3. Benazepril 20 mg daily. 4. Allopurinol 200 mg daily. FAMILY HISTORY: No inherited diseases. SOCIAL HISTORY: He is a nonsmoker who never smoked, drinks no alcohol, uses no illicit drugs. REVIEW OF SYSTEMS: A comprehensive review of systems was performed and the pertinent positives are in the HPI, and the rest are negative. PHYSICAL EXAMINATION: VITAL SIGNS: Blood pressure 140/60, heart rate 70-80 in sinus rhythm, afebrile, room air saturation 98%. HEENT: Unremarkable. NECK: Without JVD or carotid bruits. LUNGS: Clear. HEART: Heart sounds normal. ABDOMEN: Soft. Positive bowel sounds. No tenderness. No organomegaly. No guarding or rebound. EXTREMITIES: No clubbing, cyanosis or edema. NEUROLOGIC: Intact. LABORATORY DATA: Sodium 135, potassium 3.0, BUN 22, creatinine 0.8. Normal liver tests and bilirubin. Normal lipase. White blood count 11.4 with a left shift, hemoglobin 17.2, platelet count 236. Urinalysis unremarkable. IMAGING: Abdominal CT: dilated loops of small and large bowel, diverticulosis, partial small bowel obstruction.r No EKG was done. IMPRESSION/DIAGNOSES 1. Small-bowel obstruction. 2. Dehydration as evidenced by prerenal azotemia and high hemoglobin, hemoconcentration. 3. Hypokalemia. 4. History of hypertension. PLAN: Place the patient in Observation. Begin IV fluids for treating dehydration. Correct the potassium. Begin bowel rest with n.p.o. status. It does not appear that he needs an NG tube since there is no ongoing nausea or retching and vomiting. Start to advance the diet as tolerated. In the past he states that his bowel obstructions have resolved in 24 hours. Continue with his blood pressure medications since there is no vomiting, but we will not give the diuretic since he currently needs hydration. CODE STATUS: FULL CODE. DEEP VENOUS THROMBOSIS PROPHYLAXIS: SCDs. ATTESTATION: The patient is expected to be discharged or transferred to another facility within 96 hours: Yes. TD: 08/01/2018 15:22 MTDD
[2018-08-01] MEDS: SODIUM CHLORIDE FLUSH 0.9% 10 ML SYRINGE IVP SCH (17:55)
[2018-08-02 06:29] LABS: BASOPHILS % (AUTO) 0.8 %; EOSINOPHILS # (AUTO) 0.2 10^3/uL (0.0-0.7); EOSINOPHILS % (AUTO) 3.6 %; HGB - HEMOGLOBIN 14.6 g/dL (14.0-18.0); LYMPHOCYTES # (AUTO) 1.3 10^3/uL (1.5-3.5); LYMPHOCYTES % (AUTO) 27.1 %; MEAN CORPUSCULAR HEMOGLOBIN 30.8 pg (27.0-31.0); MEAN CORPUSCULAR HGB CONC 33.8 g/dL (32.0-36.0); MEAN CORPUSCULAR VOLUME 91.2 fL (80.0-94.0); MEAN PLATELET VOLUME 7.9 fL (7.4-11.4); MONOCYTES # (AUTO) 0.4 10^3/uL (0.0-1.0); MONOCYTES % (AUTO) 7.6 %; NEUTROPHILS # (AUTO) 2.9 10^3/uL (1.5-6.6); NEUTROPHILS % (AUTO) 60.9 %; PLT - PLATELET COUNT 171 10^3/uL (130-450); RED BLOOD COUNT 4.73 10^6/uL (4.70-6.10); RED CELL DISTRIBUTION WIDTH 13.2 % (12.0-15.0); WHITE BLOOD COUNT 4.7 x10^3/uL (4.8-10.8)
[2018-08-02 06:43] LABS: BUN - BLOOD UREA NITROGEN 15 mg/dL (6-20); CALCIUM 8.6 mg/dL (8.5-10.3); CARBON DIOXIDE - CO2 26 mmol/L (21-32); CHLORIDE 108 mmol/L (101-111); CREATININE 0.8 mg/dL (0.6-1.2); GFR - MDRD 95 (>89); GLUCOSE 117 mg/dL (70-100); MAGNESIUM 2.5 mg/dL (1.7-2.8); PHOSPHORUS 2.5 mg/dL (2.5-4.6); SODIUM 140 mmol/L (135-145)
[2018-08-02] MEDS ORDERED: PANTOPRAZOLE 40 MG VIAL IVP SCH (07:00)
[2018-08-02] MEDS: SODIUM CHLORIDE FLUSH 0.9% 10 ML SYRINGE IVP SCH ×2 (07:01→08:53)
[2018-08-02] MEDS ORDERED: D5NS W/20 MEQ KCL 1,000 ML IV SCH (07:20)
[2018-08-02 12:37] VITALS: BP 147/74
--- NOTE | 2018-08-02 13:44 | Discharge Plan ---
Discharge Plan Disposition: 01 Home, Self Care Condition: Stable Diet: Soft Activity Restrictions: Activity as Tolerated Shower Restrictions: No Driving Restrictions: No Instruction Topics: Obstruction Sm Bowel, Diverticulosis Diverticulitis, Diet High Fiber Additional Instructions or Follow Up instructions: You were here with small bowel obstruction. Stay on a bland, low fiber diet until the bowels feel normal. See your PCP or a Gatroenterology specialist for further evaluation and management, since this is your third bout with this problem. Resume all your pre-hospital medications. If you have new or worsening symptoms, come to the ER. No Smoking: If you smoke, Please STOP! Call for help. Follow-up with: Richard Walters MD [Primary Care Provider] -
--- NOTE | 2018-08-05 13:15 | DISCHARGE SUMMARY ---
Physician: Holly Dubose MD DATE OF ADMISSION: 08/01/2018 DATE OF DISCHARGE: 08/02/2018 HISTORY OF PRESENT ILLNESS: This is a 73-year-old white male with history of remote atrial fibrillation 30 years ago or more, hypertension, and two episodes of small-bowel obstruction after a hernia repair with mesh. The patient presented with his typical cramping abdominal pain with nausea and vomiting. He knew this was his presentation with bowel obstruction and came to the emergency room. HOSPITAL COURSE/DISCHARGE DIAGNOSES 1. Small-bowel obstruction. The patient's imaging showed dilated fluid- containing small-bowel loops and fluid-filled colon with air-fluid levels from the cecum to the descending colon, which was consistent with a partial small- bowel obstruction. Also findings were of colonic diverticulosis, hepatic steatosis, mild splenomegaly, and a small right adrenal nodule and renal cysts. The patient was treated with bowel rest, antiemetics, and minimal pain medications. He did not require an NG tube for decompression since his symptoms resolved quickly (he stated that during the past two episodes, symptoms resolved in 24 hours). He was able to pass gas, and his diet was advanced from n.p.o. to liquids to soft diet, and he tolerated this with no pain. He was discharged the following day and advised to see his PCP and get a antique repairer for further evaluation and management since this is his third recurrence. 2. Dehydration. The patient had prerenal azotemia and a high hemoglobin of 17. He received IV hydration and had improvement in his BUN/creatinine ratio from 20/0.8 to 15/0.8. He was taking adequate p.o. hydration at the time of discharge. 3. Hypokalemia. This was likely from his vomiting and n.p.o. status. It was replaced, and his admission potassium of 3.0 was 3.5 at discharge. 4. History of hypertension. His blood pressure was under control while here. His Benazepril was continued; however, he was off his hydrochlorothiazide for a day because of the dehydration. LABORATORY AND IMAGING: Reviewed and summarized above. CONDITION AT DISCHARGE: Fair. PHYSICAL EXAMINATION VITAL SIGNS: Blood pressure 147/74, pulse of 73, afebrile, room air saturation 100%. HEENT: Unremarkable. NECK: Without JVD or bruits. CHEST: Clear. HEART: Sounds normal. ABDOMEN: Soft. Positive bowel sounds. No tenderness, organomegaly, guarding, or rebound. EXTREMITIES: Benign. NEUROLOGIC: Intact. FOLLOWUP: He was advised to see his PCP within 7-10 days and consider gastroenterology evaluation and management. CODE STATUS: FULL CODE. Time required to complete this discharge: 30 minutes. cc requested for a Romeo Lacy MD = Richard Walters MD ?___ cc: Richard Walters MD TD: 08/05/2018 11:55 MTDD
[2018-08-06] MEDS ORDERED: IOVERSOL 320 100 ML VIAL IVP ONE (14:27)
== END 2018-08-02 14:05 | disposition home or self-care (01) ==
LOC: ED 06:11 → MS2 11:06
PROVIDERS: ADMIT Internal Medicine; ATTEND Internal Medicine
DX: K56.600 Partial intestinal obstruction, unspecified as to cause (principal); E86.0 Dehydration; E87.6 Hypokalemia; I10 Essential (primary) hypertension; M10.9 Gout, unspecified; Z79.899 Other long term (current) drug therapy; Z86.79 Personal history of other diseases of the circulatory system
CPT/HCPCS: 36415; 74177; 80048; 80053; 81003; 83690; 83735; 84100; 85025; 96361; 96365; 96375; 99284; 99285; G0378; Q9967; 81001; 87086

== ENCOUNTER 2021-08-13 10:26 | Outpatient (CLI) | payer MEDICARE, OTHER | END 2021-08-13 10:27 | disposition short-term general hospital (02) | LOC: EMS 10:26 | DX: Z04.3 Encounter for examination and observation following other accident (principal); M25.552 Pain in left hip | CPT/HCPCS: A0425; A0427 ==